=== PATIENT | male | born 1975 | race Caucasian/White ===

== ENCOUNTER 2022-05-28 07:23 | Emergency (ER) | payer OTHER ==
[~2022-05-28] VITALS: Ht 177.8 cm; Wt 121.9 kg
[2022-05-28] MEDS ORDERED: PREDNISONE20 MG PO (07:40)
== END 2022-05-28 08:10 | disposition home or self-care (01) ==
LOC: ED 07:23
DX: T78.40XA Allergy, unspecified, initial encounter (principal)
CPT/HCPCS: 96372; 99283; J1100